=== PATIENT | female | born 1950 | race Caucasian/White ===

== ENCOUNTER 2017-10-16 07:30 | Inpatient (IN) | payer MEDICARE ==
[~2017-10-16] VITALS: Ht 165.1 cm; Wt 59.2 kg
[2017-12-04] MEDS ORDERED: LEVO50TA4 PO (10:41)
[2017-12-04] MEDS ORDERED: DOCU1CAP66 PO (10:41)
[2017-12-04] MEDS ORDERED: METO50TA PO (10:41)
[2017-12-04] MEDS ORDERED: VITATAB56 PO (10:41)
[2017-12-04] MEDS ORDERED: TUMS500C CHEW (10:41)
[2017-12-05] MEDS ORDERED: METOPROLOL TARTRATE 25 MG TAB PO PRN (06:15)
[2017-12-05] MEDS ORDERED: CHLORHEXIDINE GLUCONATE 2 % 1 PACK (2 CLOTHS) TOPICAL PRN (06:15)
[2017-12-05] MEDS ORDERED: SODIUM CHLORID 0.9% 500 ML IV PRN (06:15)
[2017-12-05] MEDS ORDERED: ceFAZolin 2 GM PREMIX 50 ML IV SCH (06:15)
[2017-12-05] MEDS ORDERED: LACTATED RINGER'S 1000 ML IV PRN (06:15)
[2017-12-05] MEDS ORDERED: ACETAMINOPHEN 1000 MG/100 ML 100 ML IV ONE (09:09)
[2017-12-05] MEDS ORDERED: HYDROmorphone HCL PCA 6 MG/30 ML IV SCH (09:45)
[2017-12-05] MEDS ORDERED: NALOXONE HCL 0.4 MG/ML AMP IV PUSH PRN (09:45)
[2017-12-05] MEDS ORDERED: Post-op Orders (for Pharmacy) XX ONE (09:45)
[2017-12-05] MEDS ORDERED: SODIUM CHLORIDE 0.9% FLUSH 10 ML FLUSH IV FLUSH PRN (09:45)
[2017-12-05] MEDS ORDERED: oxyCODONE/ACETAMINOPHEN 5 MG/325 MG TAB PO PRN (09:45)
[2017-12-05] MEDS ORDERED: ONDANSETRON HCL 4 MG/2 ML VIAL IV PUSH PRN (09:45)
[2017-12-05] MEDS ORDERED: HYDROmorphone HCL PF 2 MG/ML VIAL IV PUSH PRN (09:45)
[2017-12-05] MEDS ORDERED: MIDAZOLAM HCL 2 MG/2 ML VIAL ONE (10:06)
[2017-12-05] MEDS ORDERED: *morphine SULFATE 4 MG/ML PERIprocedure ONLY ONE (10:29)
[2017-12-05] MEDS: DEXT 5%-NACL 0.45% 1000 ML INJ 1,000 ML IV SCH ×3 (10:40→23:59)
[2017-12-05] MEDS ORDERED: *ONDANSETRON 4 MG VIAL PERIprocedural Use ONLY ONE (10:49)
[2017-12-05] MEDS ORDERED: ACETAMINOPHEN 1000 MG/100 ML 100 ML IV SCH (11:00)
[2017-12-05] MEDS ORDERED: NEOSTIGMINE 5 MG/5 ML SYRINGE IV PUSH ONE (12:00)
[2017-12-05] MEDS ORDERED: PHENYLEPH/NS 1000 MCG/10 ML SYR IV ONE (12:00)
[2017-12-05] MEDS ORDERED: ESMOLOL HCL 100 MG/10 ML VIAL IV ONE (12:00)
[2017-12-05] MEDS ORDERED: ONDANSETRON HCL 4 MG/2 ML VIAL IV ONE (12:00)
[2017-12-05] MEDS ORDERED: GLYCOPYRROLATE 1 MG/5 ML SYRINGE IV PUSH ONE (12:00)
[2017-12-05] MEDS ORDERED: LIDOCAINE HCL 1% PF 5 ML SYRINGE OTHER ONE (12:00)
[2017-12-05] MEDS ORDERED: PROPOFOL 200 MG/20 ML AMP IV ONE (12:00)
[2017-12-05] MEDS ORDERED: NORMOSOL R INJ 1,000 ML IV ONE (12:00)
[2017-12-05] MEDS ORDERED: ROCURONIUM INJ 50 MG/5 ML SYRINGE IV PUSH ONE (12:00)
[2017-12-05 13:52] VITALS: BP 116/72; PULSE 70; RESP 20; TEMP 98.7; O2SAT 95
[2017-12-05] MEDS: PCA - TOTAL MG DILAUDID DELIVERED PER SHIFT OTHER SCH ×2 (14:00→20:33)
[2017-12-05] MEDS ORDERED: DO NOT ADM ANY ANTICOAGULANT DRUGS PRN (14:30)
[2017-12-05] MEDS: ACETAMINOPHEN 1000 MG/100 ML 100 ML IV SCH ×3 (15:30→16:11)
[2017-12-05 16:00] VITALS: BP 119/67; PULSE 67; RESP 20; TEMP 96.9; O2SAT 97
[2017-12-05 20:00] VITALS: BP 110/64; PULSE 73; RESP 20; TEMP 97.3; O2SAT 99
[2017-12-05] MEDS: SODIUM CHLORIDE 0.9% FLUSH 10 ML FLUSH IV FLUSH SCH (20:32)
--- NOTE | 2017-12-05 21:59 | EKG ---
Date Performed: 12/05/2017 Time Performed: 06:10:33 PTAGE: 67 years EKG: SINUS BRADYCARDIA POSSIBLE LEFT ATRIAL ENLARGEMENT INCOMPLETE RIGHT BUNDLE BRANCH BLOCK BOR DERLINE ECG NO PREVIOUS TRACING DOCTOR: John Perales Interpretating Date/Time 12/05/2017 21:58:00
[2017-12-06] VITALS: BP 120/66; PULSE 79; RESP 18; TEMP 96.9; O2SAT 98
[2017-12-06] MEDS: ACETAMINOPHEN 1000 MG/100 ML 100 ML IV SCH ×2 (03:21→09:49)
[2017-12-06 04:00] VITALS: BP 121/73; PULSE 83; RESP 18; TEMP 97.9; O2SAT 97
[2017-12-06] MEDS: PCA - TOTAL MG DILAUDID DELIVERED PER SHIFT OTHER SCH ×3 (05:17→21:10)
[2017-12-06 08:00] VITALS: BP 119/69; PULSE 72; RESP 19; TEMP 96.9; O2SAT 96
[2017-12-06 08:39] LABS: HEMOGLOBIN 11.5 GM/DL (11.6-15.3); MEAN CORPUSCULAR HGB CONC 34.9 % (32.0-36.0); MEAN PLATELET VOLUME 8.2 FL (7.0-11.0); PLATELET COUNT 304 TH/MM3 (150-450); RED BLOOD COUNT 3.97 MIL/MM3 (4.00-5.30)
[2017-12-06] MEDS: SODIUM CHLORIDE 0.9% FLUSH 10 ML FLUSH IV FLUSH SCH ×2 (09:00→21:00)
[2017-12-06] MEDS: HEPARIN SODIUM - SQ 10,000 UNITS/ML VIAL SQ SCH ×2 (09:00→21:10)
[2017-12-06 09:02] LABS: BICARBONATE 27.8 MEQ/L (21.0-32.0); CALCIUM 8.3 MG/DL (8.5-10.1); CREATININE 0.76 MG/DL (0.50-1.00)
[2017-12-06] MEDS: DEXT 5%-NACL 0.45% 1000 ML INJ 1,000 ML IV SCH ×3 (09:36→23:16)
[2017-12-06 12:00] VITALS: BP 129/85; PULSE 118; RESP 20; TEMP 97.6; O2SAT 98
--- NOTE | 2017-12-06 13:03 | HHI.PR ---
Subjective Patient symptoms today POD#1 Left Nephrectomy -Doing well, pain well controlled. No fevers, no N/V. Ambulating. No BM or flatus Objective Vital Signs Vital Signs Date Time Temp Pulse Resp B/P (MAP) Pulse Ox O2 Delivery O2 Flow Rate FiO2 12/06/17 12:00 97.6 118 20 129/85 (100) 98 12/06/17 08:00 96.9 72 19 119/69 (86) 96 12/06/17 05:17 17 12/06/17 04:00 97.9 83 18 121/73 (89) 97 12/06/17 00:00 96.9 79 18 120/66 (84) 98 12/05/17 20:33 17 12/05/17 20:00 97.3 73 20 110/64 (79) 99 12/05/17 16:00 96.9 67 20 119/67 (84) 97 12/05/17 14:00 16 12/05/17 13:52 98.7 70 20 116/72 (87) 95 12/05/17 13:00 57 16 125/67 (86) 100 Nasal Cannula 2 Intake & Output 12/06/17 12/06/17 07:00 19:00 Intake Total 240 ml Balance 240 ml Intake Oral 240 ml Result Diagram: 12/06/17 0702 12/06/17 0702 Objective Remarks NAD, AAOx3 Resp NL Ab Soft, Distended, appropriately tender to palpation Incision with c/d/i dressings in place Medications and IVs Current Medications Medications (Trade) Dose Ordered Sig/Adrianna Route Start Time Stop Time Status Last Admin Lactated Ringer's 1,000 ml @ 30 mls/hr Q24H PRN IV 12/05/17 06:15 12/08/17 06:14 12/05/17 06:30 Sodium Chloride 500 ml @ 30 mls/hr [id number] PRN IV 12/05/17 06:15 12/08/17 06:14 (Lopressor) 25 mg STUDIO RECEPTIONIST PRN PO 12/05/17 06:15 12/08/17 06:14 (Chlorhexidine 2% Cloth) 3 pack STUDIO RECEPTIONIST PRN TOPICAL 12/05/17 06:15 12/08/17 06:14 Dextrose/Sodium Chloride 1,000 ml @ 125 mls/hr Q8H IV 12/05/17 09:36 12/06/17 09:36 (NS Flush) 2 ml UNSCH PRN IV FLUSH 12/05/17 09:45 (NS Flush) 2 ml BID IV FLUSH 12/05/17 21:00 (Percocet 5-325 Mg) 1 tab Q4H PRN PO 12/05/17 09:45 (Percocet 5-325 Mg) 2 tab Q4H PRN PO 12/05/17 09:45 (Dilaudid Pf Inj) 2 mg Q2H PRN IV PUSH 12/05/17 09:45 (Zofran Inj) 4 mg Q6H PRN IV PUSH 12/05/17 09:45 12/05/17 14:06 (Heparin Inj) 5,000 units Q12H SQ 12/06/17 09:00 (Narcan Inj) 0.4 mg UNSCH PRN IV PUSH 12/05/17 09:45 (Dilaudid MAT MAN Inj) 6 mg UNSCH IV 12/05/17 09:45 12/05/17 11:39 MAT MAN Dosage Infused (Pha) 1 Q8HR OTHER 12/05/17 14:00 12/06/17 05:17 Miscellaneous Information ALL NURSING DEPARTME... UNSCH PRN .XX 12/05/17 14:30 12/06/17 14:29 Assessment and Plan Problem List: (1) Nonfunctioning kidney ICD Code: N28.9 - Disorder of kidney and ureter, unspecified (2) S/p nephrectomy ICD Code: Z90.5 - Acquired absence of kidney Assessment and Plan -Continue pain control. -Clear liquid diet; advance as tolerated. Regular diet tonight -Cr normal -Liang removed this am; pending void -Ambulate, SCDs -Stool softner, dulcolax suppositories -Possible discharge in 1-2 days Sanjeev Gallegos MD Dec 06, 2017 13:03
[2017-12-06] MEDS ORDERED: BISACODYL 10 MG SUPP RECTAL PRN (13:15)
[2017-12-06] MEDS ORDERED: BISACODYL 10 MG SUPP RECTAL ONE (13:40)
--- NOTE | 2017-12-06 13:52 | MP ---
cc: LISA BLAKE MD DATE OF SURGERY: 12/05/2017. PREOPERATIVE DIAGNOSIS: Left nonfunctional cystic kidney. POSTOPERATIVE DIAGNOSIS: Left nonfunctional cystic kidney. OPERATIVE PROCEDURE PERFORMED: Left open nephrectomy. SURGEON: Lisa Blake MD. TRANSPORT AIRCREWMAN: Bijan Short MD. PERTINENT FINDINGS: Large left cystic kidney. This really was a hydronephrotic kidney with retained urine with little to no renal parenchyma. This was successfully removed in its entirety without complication. INDICATIONS FOR THE PROCEDURE / HISTORY OF PRESENT ILLNESS: Kerry Manning is a 67-year-old female with a history of large left renal cystic mass. She was found septic with this large fluid-filled sac in the left kidney. This was initially drained with a nephrostomy tube at which point she improved. Fluid was checked for creatinine which was positive for urine. This completely drained her left collecting system however after removal of the drain, the fluid reaccumulated and she again had a large significant fluid collection in the left kidney with minimal renal parenchyma. Therefore it was decided to remove this left kidney as it is likely nonfunctional and not contributing to her overall renal collection. The risks and benefits of the procedure were discussed with the patient in detail including the risks of bleeding, pain, infection, cosmetic appearance, renal deterioration and injury to surrounding organs. The patient understood and agreed to move forward with the operation. DESCRIPTION OF THE PROCEDURE IN DETAIL: After prior informed consent was obtained, the patient was brought to the operating room and remained supine on the operating room table. Bilateral lower extremity SCDs were in place. The patient was then placed under general anesthesia. The patient was then placed in the supine position and was slightly flexed. A Liang catheter was placed prior to the beginning of the procedure. At this point, the patient prepped and draped in the standard surgical fashion. After appropriate time out was completed, a left subcostal incision was made. Careful dissection was carried down to the fascia using Bovie electrocautery. At this point, the peritoneum was entered without injury to bowel or any of the surrounding organs. Upon entry to the abdomen, the left colon was encountered. The white line of Toldt was then taken down and the colon was reflected medially. After adequate reflection, the large cystic kidney was identified. Using sharp and blunt dissection, this was freed from the surrounding colon and spleen. Care was taken not to injure any surrounding organs. Careful inspection laterally was completed and then this was carried medially towards hilum. The renal vein was then encountered and carefully dissected with a Vesseloop placed around for identification. Continued dissection was carried out; however, the artery was difficult to feel and/or identify. At this point, the hilum was completely isolated; therefore, the vascular load stapler was then used to come across the hilum. This was done successfully without any bleeding. At this point the main vascular supply to the kidney was removed and therefore further dissection medially and posteriorly was completed. At this point, the ureter and gonadal vessel was isolated and also stapled across. Following this, careful superior dissection from the adrenal gland was completed leaving the adrenal gland in place and dissecting the kidney free. At this point, this freed up the entire kidney and this was removed from the field. This was cystic with fluid-filled from significant hydronephrosis. After successful removal of the kidney, the renal fossa bed was investigated with minimal to no bleeding noted. The spleen was inspected and there was no injury. There was a slight capsular tear; however, no significant bleeding was coming from this location. At this point, all laps were removed from the abdomen and Nan was then applied to the renal fossa after irrigation with normal saline. At this point, the wound was closed using the 1-0 looped PDS in two layers. The skin was then closed using 4-0 Monocryl in a subcuticular fashion. Dressings were applied. The patient tolerated the procedure well. No complications. She was taken to the post-anesthesia care unit in stable condition. All instrument and lap counts were correct at the end of the procedure. DISPOSITION: The patient will be admitted for observation and recovery. Lisa Blake M.D. [facility] /9:34 AM /1:30 PM
[2017-12-06 16:00] VITALS: BP 141/79; PULSE 103; RESP 19; TEMP 99.2; O2SAT 96
[2017-12-06 20:00] VITALS: BP 153/87; PULSE 97; RESP 18; TEMP 99.4; O2SAT 98
[2017-12-06] MEDS: DOCUSATE SODIUM 100 MG CAP PO SCH (21:10)
[2017-12-07] VITALS: BP 136/81; PULSE 100; RESP 18; TEMP 98.3; O2SAT 96
[2017-12-07] MEDS: PCA - TOTAL MG DILAUDID DELIVERED PER SHIFT OTHER SCH (05:21)
[2017-12-07 06:51] LABS: HEMATOCRIT 31.7 % (35.0-46.0); HEMOGLOBIN 10.8 GM/DL (11.6-15.3); MEAN CELL VOLUME 82.6 FL (80.0-100.0); MEAN CORPUSCULAR HEMOGLOBIN 28.2 PG (27.0-34.0); MEAN CORPUSCULAR HGB CONC 34.1 % (32.0-36.0); MEAN PLATELET VOLUME 8.3 FL (7.0-11.0); PLATELET COUNT 285 TH/MM3 (150-450); RED BLOOD COUNT 3.84 MIL/MM3 (4.00-5.30); RED CELL DISTRIBUTION WIDTH 13.8 % (11.6-17.2); WHITE BLOOD COUNT 10.1 TH/MM3 (4.0-11.0)
[2017-12-07 07:03] LABS: BICARBONATE 28.4 MEQ/L (21.0-32.0); CALCIUM 8.2 MG/DL (8.5-10.1); CREATININE 0.58 MG/DL (0.50-1.00)
[2017-12-07 08:00] VITALS: BP 135/79; PULSE 94; RESP 18; TEMP 98.3; O2SAT 96
[2017-12-07] MEDS: SODIUM CHLORIDE 0.9% FLUSH 10 ML FLUSH IV FLUSH SCH ×2 (08:53→21:00)
[2017-12-07] MEDS: HEPARIN SODIUM - SQ 10,000 UNITS/ML VIAL SQ SCH ×2 (08:54→21:08)
[2017-12-07] MEDS: DOCUSATE SODIUM 100 MG CAP PO SCH ×2 (08:54→21:08)
[2017-12-07] MEDS: DEXT 5%-NACL 0.45% 1000 ML INJ 1,000 ML IV SCH ×2 (08:55→20:28)
[2017-12-07 12:00] VITALS: BP 135/82; PULSE 98; RESP 17; TEMP 98; O2SAT 97
--- NOTE | 2017-12-07 15:44 | HHI.PR ---
Subjective Patient symptoms today POD#2 LEft Nephrectomy Doing well, pain controlled. No fevers. +BM, however feels bloated. No N/V Objective Vital Signs Vital Signs Date Time Temp Pulse Resp B/P (MAP) Pulse Ox O2 Delivery O2 Flow Rate FiO2 12/07/17 12:00 98.0 98 17 135/82 (99) 97 12/07/17 08:00 98.3 94 18 135/79 (97) 96 12/07/17 05:21 18 12/07/17 00:00 98.3 100 18 136/81 (99) 96 12/06/17 21:10 20 12/06/17 20:00 99.4 97 18 153/87 (109) 98 12/06/17 16:00 99.2 103 19 141/79 (99) 96 Intake & Output 12/07/17 12/07/17 07:00 19:00 Intake Total 1360 ml Output Total 1200 ml Balance 160 ml Intake Oral 360 ml IV Total 1000 ml Output Urine Total 1200 ml # Bowel Movements 0 Result Diagram: 12/07/1741112/07/17411 Objective Remarks NAD, AAOx3 Resp NL Ab Soft, Distended, appropriately tender to palpation Incision with c/d/i, no erythema, no drainage Medications and IVs Current Medications Medications (Trade) Dose Ordered Sig/Adrianna Route Start Time Stop Time Status Last Admin Lactated Ringer's 1,000 ml @ 30 mls/hr Q24H PRN IV 12/05/17 06:15 12/08/17 06:14 12/05/17 06:30 Sodium Chloride 500 ml @ 30 mls/hr [id number] PRN IV 12/05/17 06:15 12/08/17 06:14 (Lopressor) 25 mg SUPERINTENDENT DIVISION PRN PO 12/05/17 06:15 12/08/17 06:14 (Chlorhexidine 2% Cloth) 3 pack SUPERINTENDENT DIVISION PRN TOPICAL 12/05/17 06:15 12/08/17 06:14 Dextrose/Sodium Chloride 1,000 ml @ 83 mls/hr Q12H3M IV 12/05/17 09:36 12/07/17 08:55 (NS Flush) 2 ml UNSCH PRN IV FLUSH 12/05/17 09:45 (NS Flush) 2 ml BID IV FLUSH 12/05/17 21:00 (Percocet 5-325 Mg) 1 tab Q4H PRN PO 12/05/17 09:45 (Percocet 5-325 Mg) 2 tab Q4H PRN PO 12/05/17 09:45 (Dilaudid Pf Inj) 2 mg Q2H PRN IV PUSH 12/05/17 09:45 (Zofran Inj) 4 mg Q6H PRN IV PUSH 12/05/17 09:45 12/05/17 14:06 (Heparin Inj) 5,000 units Q12H SQ 12/06/17 09:00 12/07/17 08:54 (Colace) 100 mg BID PO 12/06/17 21:00 12/07/17 08:54 (Dulcolax Supp) 10 mg DAILY PRN RECTAL 12/06/17 13:15 Assessment and Plan Problem List: (1) Nonfunctioning kidney ICD Code: N28.9 - Disorder of kidney and ureter, unspecified (2) S/p nephrectomy ICD Code: Z90.5 - Acquired absence of kidney Assessment and Plan -PO Pain control -Regular diet -Hgb and Cr stable -Stool softners, dulcolax suppositories -Ambulate, SCDs -Possible discharge tomorrow Sanjeev Gallegos MD Dec 07, 2017 15:44
[2017-12-07 16:00] VITALS: BP 148/88; PULSE 99; RESP 21; TEMP 99; O2SAT 98
[2017-12-07] MEDS: oxyCODONE/ACETAMINOPHEN 5 MG/325 MG TAB PO PRN (19:02)
[2017-12-07 20:00] VITALS: BP 156/88; PULSE 101; RESP 17; TEMP 98.8; O2SAT 97
[2017-12-08 01:00] VITALS: BP 109/66; PULSE 82; RESP 16; TEMP 98; O2SAT 97
[2017-12-08] MEDS: oxyCODONE/ACETAMINOPHEN 5 MG/325 MG TAB PO PRN ×3 (03:32→13:10)
[2017-12-08 05:19] LABS: HEMATOCRIT 31.4 % (35.0-46.0); HEMOGLOBIN 10.5 GM/DL (11.6-15.3); MEAN CELL VOLUME 82.5 FL (80.0-100.0); MEAN CORPUSCULAR HEMOGLOBIN 27.6 PG (27.0-34.0); MEAN CORPUSCULAR HGB CONC 33.4 % (32.0-36.0); MEAN PLATELET VOLUME 7.9 FL (7.0-11.0); PLATELET COUNT 274 TH/MM3 (150-450); RED BLOOD COUNT 3.81 MIL/MM3 (4.00-5.30); RED CELL DISTRIBUTION WIDTH 13.7 % (11.6-17.2); WHITE BLOOD COUNT 7.5 TH/MM3 (4.0-11.0)
[2017-12-08 05:22] LABS: BICARBONATE 29.2 MEQ/L (21.0-32.0); CALCIUM 8.1 MG/DL (8.5-10.1); CREATININE 0.54 MG/DL (0.50-1.00)
[2017-12-08 08:00] VITALS: BP 133/84; PULSE 83; RESP 17; TEMP 98.2; O2SAT 95
[2017-12-08] MEDS: DOCUSATE SODIUM 100 MG CAP PO SCH ×2 (08:35→20:01)
[2017-12-08] MEDS: SODIUM CHLORIDE 0.9% FLUSH 10 ML FLUSH IV FLUSH SCH ×2 (08:35→20:01)
[2017-12-08] MEDS: HEPARIN SODIUM - SQ 10,000 UNITS/ML VIAL SQ SCH ×2 (08:37→20:01)
[2017-12-08] MEDS: DEXT 5%-NACL 0.45% 1000 ML INJ 1,000 ML IV SCH ×2 (08:42→20:01)
[2017-12-08 12:00] VITALS: BP 126/77; PULSE 76; RESP 19; TEMP 97.6; O2SAT 96
[2017-12-08] MEDS ORDERED: POTASSIUM CHLORIDE 20 MEQ CONTROLLED RELEASE TAB PO ONE (13:00)
--- NOTE | 2017-12-08 15:28 | HHI.PR ---
Subjective Patient symptoms today POD#3 Left Nephrectomy Doing well, minimal pain. Tolerating diet, +BM Objective Vital Signs Vital Signs Date Time Temp Pulse Resp B/P (MAP) Pulse Ox O2 Delivery O2 Flow Rate FiO2 12/08/17 12:00 97.6 76 19 126/77 (93) 96 12/08/17 08:00 98.2 83 17 133/84 (100) 95 12/08/17 01:00 98.0 82 16 109/66 (80) 97 12/07/17 20:00 98.8 101 17 156/88 (110) 97 12/07/17 16:00 99.0 99 21 148/88 (108) 98 Intake & Output 12/08/17 12/08/17 07:00 19:00 Intake Total 1360 ml Output Total 300 ml Balance 1060 ml Intake Oral 360 ml IV Total 1000 ml Output Urine Total 300 ml # Bowel Movements 0 Result Diagram: 12/08/17 0355 12/08/17 0335 Objective Remarks NAD, AAOx3 Resp NL Ab Soft, Distended, appropriately tender to palpation Incision with c/d/i, no erythema, no drainage,healing well Medications and IVs Current Medications Medications (Trade) Dose Ordered Sig/Adrianna Route Start Time Stop Time Status Last Admin Dextrose/Sodium Chloride 1,000 ml @ 83 mls/hr Q12H3M IV 12/05/17 09:36 12/08/17 08:42 (NS Flush) 2 ml UNSCH PRN IV FLUSH 12/05/17 09:45 (NS Flush) 2 ml BID IV FLUSH 12/05/17 21:00 (Percocet 5-325 Mg) 1 tab Q4H PRN PO 12/05/17 09:45 (Percocet 5-325 Mg) 2 tab Q4H PRN PO 12/05/17 09:45 12/08/17 13:10 (Dilaudid Pf Inj) 2 mg Q2H PRN IV PUSH 12/05/17 09:45 (Zofran Inj) 4 mg Q6H PRN IV PUSH 12/05/17 09:45 12/05/17 14:06 (Heparin Inj) 5,000 units Q12H SQ 12/06/17 09:00 12/08/17 08:37 (Colace) 100 mg BID PO 12/06/17 21:00 12/08/17 08:35 (Dulcolax Supp) 10 mg DAILY PRN RECTAL 12/06/17 13:15 Assessment and Plan Problem List: (1) Nonfunctioning kidney ICD Code: N28.9 - Disorder of kidney and ureter, unspecified (2) S/p nephrectomy ICD Code: Z90.5 - Acquired absence of kidney Assessment and Plan -PO Pain control -Regular diet -Hgb and Cr stable -Stool softners, dulcolax suppositories -Ambulate, SCDs -Patient clear for discharge for tomorrow am Sanjeev Gallegos MD Dec 08, 2017 15:28
[2017-12-08] MEDS ORDERED: OXYC1TAB63 PO (15:31)
--- NOTE | 2017-12-08 15:33 | HHI.DS ---
Discharge Summary Admission Date Dec 05, 2017 at 05:41 Discharge Date: Dec 09, 2017 Admitting Diagnosis Nephrectomy; nonfunctional kidney (1) S/p nephrectomy Diagnosis: Principal ICD Codes: Z90.5 - Acquired absence of kidney (2) Nonfunctioning kidney Diagnosis: Principal ICD Codes: N28.9 - Disorder of kidney and ureter, unspecified Brief History nonfunctional left kidney CBC/BMP: 12/08/17 0355 12/08/17 0335 Significant Findings Laboratory Tests Test 12/06/17 07:02 12/07/17 04:12 12/08/17 03:35 12/08/17 03:55 White Blood Count 12.0 TH/MM3 (4.0-11.0) Red Blood Count 3.97 MIL/MM3 (4.00-5.30) 3.84 MIL/MM3 (4.00-5.30) 3.81 MIL/MM3 (4.00-5.30) Hemoglobin 11.5 GM/DL (11.6-15.3) 10.8 GM/DL (11.6-15.3) 10.5 GM/DL (11.6-15.3) Hematocrit 33.0 % (35.0-46.0) 31.7 % (35.0-46.0) 31.4 % (35.0-46.0) Random Glucose 126 MG/DL (74-106) Calcium Level 8.3 MG/DL (8.5-10.1) 8.2 MG/DL (8.5-10.1) 8.1 MG/DL (8.5-10.1) Chloride Level 108 MEQ/L (98-107) 108 MEQ/L (98-107) 109 MEQ/L (98-107) Estimat Glomerular Filtration Rate 76 ML/MIN (>89) Blood Urea Nitrogen 4 MG/DL (7-18) 3 MG/DL (7-18) Potassium Level 3.3 MEQ/L (3.5-5.1) Hospital Course Patient underwent left open nephrectomy on 12/05/17. She did well post- operatively, tolerated regular diet, +BM, pain well controlled. She was ambulating well and discharge home on POD#4 with follow-up in Urology clinic in 2 weeks. Pt Condition on Discharge: Good Discharge Disposition: Discharge Home Discharge Instructions DIET: Follow Instructions for: As Tolerated, No Restrictions Activities you can perform: Shower Only-No Bath New Medications: Oxycodone HCl/Acetaminophen (Oxycodone-Acetaminophen 5-325) 5 Mg-325 Mg Tablet 2 TAB PO Q6HR PRN for pain for 14 Days, #60 TAB 0 Refills Continued Medications: Calcium Carbonate (Antacid) (Tums) 500 Mg Chew 500 MG CHEW Q6HR PRN for HEARTBURN, TAB 0 Refills Cholecalciferol (Vitamin D-400) 400 Unit Tab 400 UNITS PO DAILY for Nutritional Supplement, #1 BOTTLE 0 Refills Docusate Sodium (Stool Softener) 100 Mg Cap CAP PO DAILY Levothyroxine (Levothyroxine) 50 Mcg Tab 50 MCG PO DAILY for Thyroid, #30 TAB 0 Refills Metoprolol Tartrate (Metoprolol Tartrate) 50 Mg Tab 50 MG PO BID, #60 TAB 0 Refills Sanjeev Gallegos MD Dec 08, 2017 15:33
[2017-12-08 16:00] VITALS: BP 135/80; PULSE 75; RESP 16; TEMP 97.7; O2SAT 97
[2017-12-08 20:00] VITALS: BP 140/77; PULSE 101; RESP 17; TEMP 97.2; O2SAT 96
[2017-12-09] VITALS: BP 138/76; PULSE 74; RESP 17; TEMP 97.7; O2SAT 96
[2017-12-09] MEDS: oxyCODONE/ACETAMINOPHEN 5 MG/325 MG TAB PO PRN (05:36)
== END 2017-12-09 09:06 | disposition home or self-care (01) | DRG 661 ==
LOC: HSDI 12-05 05:41 → N07A 12-05 13:17
PROVIDERS: ADMIT Urology; ATTEND Urology
PROC: 0TT10ZZ Resection of Left Kidney, Open Approach (ICD-10-PCS; principal; 2017-12-05 07:33)
DX: N28.1 Cyst of kidney, acquired (principal); E03.9 Hypothyroidism, unspecified; N28.9 Disorder of kidney and ureter, unspecified; N13.30 Unspecified hydronephrosis; J45.909 Unspecified asthma, uncomplicated; K21.9 Gastro-esophageal reflux disease without esophagitis; Z87.891 Personal history of nicotine dependence
CPT/HCPCS: 80048; 85027; 86850; 86900; 86901; 86920; 88307; 93005; J0131; J0690; J1170; J1644; J2250; J2270; J2370; J2405; J2710; J3010; J7120

== ENCOUNTER 2018-10-27 05:32 | Inpatient (IN) ==
[2018-10-27] MEDS ORDERED: Metoprolol Tartrate 25 MG Tablet PO ONE (06:10)
[2018-10-27] MEDS ORDERED: Chlorhexidine Gluconate 2% 1 Pack (2 Cloths) TOPICAL ONE (06:10)
[2018-10-27] MEDS ORDERED: Chlorhexidine 4% Topical 120 APPLIC/120 ML Bottle TOPICAL SCH (06:15)
[2018-10-27] MEDS ORDERED: Dexamethasone Inj 20 MG/5 ML Vial ONE (06:36)
[2018-10-27] MEDS ORDERED: Dexamethasone Inj 20 MG/5 ML Vial IV.PUSH ONE (06:39)
[2018-10-27] MEDS ORDERED: ALPRAZolam 0.25 MG Tablet PO PRN (06:42)
[2018-10-27] MEDS ORDERED: Bisacodyl 10 MG Supp RECTAL PRN (06:44)
[2018-10-27] MEDS ORDERED: Post-op Orders (for Pharmacy) OTHER STA (06:44)
[2018-10-27] MEDS ORDERED: Zolpidem Tartrate 5 MG Tablet PO PRN (06:44)
[2018-10-27] MEDS ORDERED: HYDROmorphone PF Inj 1 MG/ML Ampul IV.PUSH PRN (06:44)
[2018-10-27] MEDS ORDERED: Sodium Chlor 0.9% Inj 40 ML, Bupivacaine Liposo PF 1.3% Inj 20 ML P-ARTICULR SCH ×2 (07:00)
[2018-10-27] MEDS ORDERED: Sodium Chlor 0.9% Inj 500 ML IV.SIG SCH (07:00)
[2018-10-27] MEDS ORDERED: ceFAZolin 2 GM Premix Inj 2 GM/50 ML PIGGYBACK IV.SIG SCH (07:00)
[2018-10-27] MEDS ORDERED: SODIUM CHLOR 0.9% IV.SIG SCH (07:00)
[2018-10-27] MEDS ORDERED: Sodium Chlor 0.9% Inj 100 ML, Tranexamic Acid Inj 3,000 MG P-ARTICULR SCH ×2 (07:00)
[2018-10-27] MEDS ORDERED: TRANEXAMIC ACID IV.SIG SCH (07:00)
[2018-10-27] MEDS ORDERED: Vancomycin Inj 1,000 MG in Sodium Chlor 0.9% Inj 250 ML IV.SIG SCH (07:00)
--- NOTE | 2018-10-27 08:23 | P.OP ---
Procedure: PREOPERATIVE DIAGNOSIS: Right hip osteoarthritis. POSTOPERATIVE DIAGNOSIS: Right hip osteoarthritis. PROCEDURE PERFORMED: Right total hip arthroplasty. SURGEON: Dr. Mat Craig M.D. GUEST HOUSE MANAGER: DAKSHA Billy. ANESTHESIA: General. ESTIMATED BLOOD LOSS: 250 mL. COMPLICATIONS: None. IMPLANTS USED: Depuy Corail femoral stem 10 standard offset Jessup Gripsion Cup 50 mm Poly insert liner neutral femoral head 32 mm ceramic neck length +8.5 JUSTIFICATION: This patient presents to the undersigned at the orthopedic clinic with chief complaints of severe Right hip pain. The pain is severe and constant and interferes with activities of daily living. The patient has failed greater than 3 months of nonoperative conservative treatment to include analgesic and nonsteroidal anti-inflammatory medications, physical therapy, cortisone injections, activity modification, weight loss, home exercise program, and use of ambulatory assistive aids. X-rays of right hip reveal severe osteoarthritis with [id number] joint space narrowing, subchondral sclerosis, subchondral cysts, osteophyte formation with subluxation. The patient was counseled on risks, benefits, and alternatives to a total hip arthroplasty. The risks were discussed, which include, but are not limited to, anesthesia, bleeding, infection, damage to nerves and blood vessels , pain, stiffness, fracture, dislocations, leg length discrepancy, failure of components, blood clots, pulmonary embolus, and even . The patient favored the benefits over the risks, did wish to proceed with surgery. PROCEDURE IN DETAIL: Written consent was obtained. The patient was identified by name, taken to the operating room and placed supine on the operating table. General anesthesia was administered. The patient was preoperative IV antibiotics. The patient right and left feet were placed in the padded traction boots. The right hip and lower extremity was then prepped and draped using isopropyl alcohol, Hibiclens solution and ChloraPrep solution. After a timeout was performed, a longitudinal incision was made over the anterior aspect of the right hip. The fascia terrence was incised. Dissection was carried over the tensor fascia terrence beneath the rectus femoris. After exposure of the anterior capsule, a capsulotomy incision was performed. An oscillating saw was used to perform a femoral neck cut. The osteoarthritic femoral head and neck was removed. A 10 blade scalpel was used to excise the labrum. Sequential reaming of the acetabulum was performed. Subsequently a porous-coated titanium acetabular cup was implanted in a press manner in approximately 45 degrees of abduction and 10 degrees of anteversion. There was good purchase and fixation after insertion of the acetabular cup. The cup was tested manually and noted to have excellent stability and fixation. A neutral highly cross-linked polyethylene liner was placed within the cup. The liner was impacted in place for fixation and tested for stability. Attention was turned to the femur where the leg was externally rotated, extended and adducted. The capsule was released off the undersurface of the greater trochanter to allow for elevation and lateralization of the femur. A box cutting osteotome was used to gain entrance into the intramedullary canal of the femur. This was followed by a canal finder and sequential broaching. A calcar planer to plane the calcar. A trial head and neck combination were evaluated prior to implantation of final components. With the final implants placed, the leg could achieve external rotation of 70 degrees and extension to the the ground without evidence of anterior instability or impingement. Soft tissue tension felt appropriate. Fluoroscopic imaging showed appropriate implantation of components. The Surgical wound was thoroughly irrigated with sterile saline Pulse Lavage antibiotic impregnated solution. The fascial layer was closed with #1 Vicryl suture, subcutaneous layer with 2-0 Vicryl sutures. The skin was closed with Dermabond. Sterile dressing applied. No intraoperative complications noted. Maurice Hilario, Physician Grid Trimmer, Certified was present for the entire procedure to include the patient position, the procedure itself. The medical necessity of a physician under water assistant was indicated in this case due to the complexity of the procedure. He assisted with position of the patient along with the ear itself. During the procedure he assisted with exposure and the retraction of muscle, tendon, bone, and neurovascular vessel structures. He assisted with the preparation of bone and also implantation of the prosthetic replacement. There was a surgical physician assistant in the room that assisted with management of instruments, but was not available to assist with the surgery itself. Mat Thakkar MD Surgeon: Mat Thakkar MD
--- NOTE | 2018-10-27 08:37 | XR ---
EXAM DATE: 10/27/2018 8:29 AM EST AGE/SEX: 67 years / Female INDICATIONS: Post-op total right hip arthroplasty. CLINICAL DATA: This is the patient's initial encounter. Patient reports that signs and symptoms have been present for 1 day and indicates a pain score of Nonresponsive. MEDICAL/SURGICAL HISTORY: Non-responsive. Non-responsive. COMPARISON: No prior exams available for comparison. FINDINGS: The fluoroscopic spot film shows anatomic alignment AP projection following total hip arthroplasty.. CONCLUSION: Anatomic alignment AP projection. Electronically signed by: Buddy Wallace MD 10/27/2018 8:35 AM EST
[2018-10-27] MEDS ORDERED: fentaNYL Citrate Inj 100 MCG/2 ML Ampul ONE (08:49)
[2018-10-27] MEDS ORDERED: *morphine SULFATE 4 MG/ML PERIprocedure ONLY ONE (08:57)
[2018-10-27] MEDS: Metoprolol Tartrate 50 MG Tablet PO SCH ×2 (10:01→20:36)
[2018-10-27] MEDS: Multivitamin/Minerals Therapeutic Tablet PO SCH ×2 (10:01→20:36)
[2018-10-27] MEDS: Senna/Docusate Sodium 8.6/50 MG Tablet PO SCH ×2 (10:01→20:36)
--- NOTE | 2018-10-27 10:26 | XR ---
EXAM DATE: 10/27/2018 10:21 AM EST AGE/SEX: 67 years / Female INDICATIONS: Post op right hip surgery. CLINICAL DATA: This is the patient's initial encounter. Patient reports that signs and symptoms have been present for 1 day and indicates a pain score of Nonresponsive. MEDICAL/SURGICAL HISTORY: None. None. COMPARISON: None. FINDINGS: AP and crosstable lateral views of the right hip were obtained as well as an AP view of the pelvis. T his demonstrates that the patient is status post right hip arthroplasty. The femoral and acetabular c omponents are intact and in normal alignment. There is surrounding soft tissue swelling and gas. Mild osteoarthritic changes noted in the left hip with sclerosis and slight spurring. CONCLUSION: Expected postoperative changes status post arthroplasty. Electronically signed by: Jitendra Bansal MD 10/27/2018 10:24 AM EST
[2018-10-27] MEDS: ceFAZolin 2 GM Premix Inj 2 GM/50 ML PIGGYBACK IV.SIG SCH ×2 (13:54→20:35)
[2018-10-28] MEDS: ceFAZolin 2 GM Premix Inj 2 GM/50 ML PIGGYBACK IV.SIG SCH (01:42)
[2018-10-28 05:34] LABS: Hematocrit 29.4 % (35.0-46.0); Hemoglobin 10.1 gm/dL (11.6-15.3)
[2018-10-28] MEDS ORDERED: Levothyroxine 50 MCG Tablet PO SCH (06:00)
--- NOTE | 2018-10-28 07:57 | P.PNOP ---
Subjective Interval history: pain under control. Physical Exam Vital signs: Vital Signs 10/27/18 08:42 10/27/18 08:45 10/27/18 09:00 Temperature 97.5 F L Pulse Rate 68 60 56 L Respiratory Rate 12 12 12 Blood Pressure 142/75 H 128/67 125/77 Pulse Oximetry 100 100 100 10/27/18 09:05 10/27/18 09:15 10/27/18 09:30 Temperature Pulse Rate 71 61 Respiratory Rate 12 16 12 Blood Pressure 142/67 H 129/64 Pulse Oximetry 100 100 10/27/18 10:00 10/27/18 11:00 10/27/18 11:35 Temperature 97.5 F L 97 F L Pulse Rate 53 L 49 L 51 L Respiratory Rate 16 16 16 Blood Pressure 124/68 104/63 107/59 L Pulse Oximetry 100 100 100 10/27/18 12:54 10/27/18 17:37 10/27/18 19:07 Temperature 96.5 F L Pulse Rate 51 L Respiratory Rate 16 17 Blood Pressure 127/72 Pulse Oximetry 100 98 10/27/18 19:25 10/27/18 21:25 10/27/18 23:26 Temperature 97.6 F 97.6 F Pulse Rate 63 79 Respiratory Rate 18 18 Blood Pressure 95/54 L 113/51 L 92/53 L Pulse Oximetry 99 99 10/28/18 03:36 Temperature 98.2 F Pulse Rate 71 Respiratory Rate 17 Blood Pressure 107/59 L Pulse Oximetry 97 Intake & Output 10/27/18 10/28/18 10/28/18 18:59 06:59 18:59 Intake Total 1457.41 / 1457.41 1246 / 1246 Output Total 100 / 100 Balance 1357.41 / 1357.41 1246 / 1246 Weight 49.9 kg 50.3 kg Intake: IV 1457.41 / 1457.41 766 / 766 LR 1000 mL Inj 1,000 ML @ 80 666 / 666 mls/hr IV.CONT .[id number] [facility] Rx# :[id number] LR 1000 mL Inj 1,000 ML @ 30 1000 / 1000 mls/hr IV.SIG .Q24H [facility] Rx#: [id number] Cyklokapron Inj 741 MG In NS 107.41 / 107.41 Inj 100 ML @ 200 mls/hr IV.SIG ONCE [facility] Rx#:[id number] Vancomycin Inj 1,000 MG In NS 250 / 250 Inj 250 ML @ 250 mls/hr IV.SIG CHIEF MINISTER CELESTE Rx#:[id number] Ancef 2 GM Premix Inj 2 gm In 100 / 100 100 / 100 50 ml @ 100 mls/hr IV.SIG Q6H [facility]LE[facility] Rx#:[id number] Oral 480 / 480 Output: Estimated Blood Loss 100 / 100 Other: # Voids 2 2 Date of Last Bowel Movement 10/26/18 Narrative: in bed, nad dressing c/d/i thigh soft neg homans nvi Results - Labs CBC & Chem 7: 10/28/18 05:03 Laboratory Results - last 24 hr 10/27/18 10/28/18 06:20 05:03 Hgb 10.1 L Hct 29.4 L Antibody Screen Negative - Imaging Impressions Hip X-Ray 10/27/18 00:00 CONCLUSION: Anatomic alignment AP projection. Hip X-Ray 10/27/18 06:42 CONCLUSION: Expected postoperative changes status post arthroplasty. Assessment and Plan - Ortho Post Op Day # 1 - Assessment and Plan s/p R LETICIA wbat ok to maintain dressing unless saturated asa 81 d/c planning home with PT - cleared f/up dr. encarnacion 2 weeks
--- NOTE | 2018-10-28 07:57 | P.DCO ---
- Physical Therapy Physical Therapy: Gait training, Safety evaluation, Transfer training, bed to chair Hip: Total hip, Protocol: Right Right Lower Extremity Weight Bearing: Weight bearing as tolerated - Nursing RN days per week: 1 Nursing: Dressing changes Dressing changes: Do not change dressing - Certification Need for Home Health services: I have seen patient Kerry Manning on 10/28/18. My clinical findings support the need for the requested home health care services because: Need for Home Health Services: Limited ability to care for self, High risk of falls Homebound Certification: I certify that my clinical findings support that this patient is homebound because: Homebound Certification: Post-op weakness, Unsteady gait/balance
[2018-10-28] MEDS: Multivitamin/Minerals Therapeutic Tablet PO SCH (09:59)
[2018-10-28] MEDS: Senna/Docusate Sodium 8.6/50 MG Tablet PO SCH (09:59)
[2018-10-28] MEDS: Metoprolol Tartrate 50 MG Tablet PO SCH (09:59)
== END 2018-10-28 13:18 | disposition home or self-care (01) ==
LOC: HSDI 05:32 → N06 11:34
PROVIDERS: ADMIT Orthopaedic Surgery Sports Medicine; ATTEND Orthopaedic Surgery Sports Medicine
DX: M16.11 Unilateral primary osteoarthritis, right hip